=== PATIENT | female | born 1960 | race African-American/Black ===

== ENCOUNTER 2016-10-02 14:29 | Emergency (ER) | payer MEDICARE ==
[2016-10-02 14:38] VITALS: BP 177/103; PULSE 94; TEMP 97.6; BMI 22.6
[2016-10-02] MEDS ORDERED: KETOROLAC TROMETHAMINE 60 MG/2 ML VIAL IM ONE (15:10)
--- NOTE | 2016-10-02 15:16 | PDOC ---
History of Present Illness - General Chief Complaint: RX Refill Stated Complaint: LOWER BACK PAIN Time Seen by Provider: 10/02/16 14:57 History Source: Patient Exam Limitations: No Limitations - History of Present Illness Initial Comments: 10/02/16 15:11 55 yr female with history of low back pain. Pt states she has had low back pain many years ago but more recently started again. Pt had MRI 09/23/16 which showed multiple herniated discs L5, L4 no spinal cord compression. Pt states her PMD gave her percocet and she ran out. Pt also asking for name of neurosurgeon. Pt denies any urine or bowel dysfunction , no saddle anesthesia or leg weakness, no abd pain. Pt ambulatory with cane. 10/02/16 18:46 Past History - Past Medical History Allergies/Adverse Reactions: Allergies Allergy/AdvReac Type Severity Reaction Status Date / Time ciprofloxacin HCl Allergy Severe Swelling Verified 10/02/16 14:38 [From Cipro] zinc [Zinc] Allergy Mild Rash Verified 10/02/16 14:38 Home Medications: Ambulatory Orders Lisinopril [Prinivil] 5 mg PO DAILY 10/13/15 Atorvastatin Ca [Lipitor] 10 mg PO HS 07/01/16 Metoprolol Tartrate [Lopressor -] 12.5 mg PO DAILY 07/01/16 Aspirin [ASA -] 325 mg PO DAILY #0 tablet 07/02/16 Nicotine Polacrilex [Nicotine Gum] 2 mg BC BID PRN #60 gum 07/02/16 Acetaminophen/Caffeine/Butalb [Fioricet -] 1 tablet PO Q6H PRN #20 tablet MDD 4 tabs 07/03/16 Oxycodone HCl/Acetaminophen [Percocet 5-325 mg Tablet] 1 - 2 tab PO Q6H PRN #15 tab MDD 8 10/02/16 Asthma: Yes Cardiac Disorders: Yes (CAD s/p cath ) CVA: No COPD: No CHF: No DVT: No Dementia: No Diabetes: No Dialysis: No GI Disorders: No Disorders: No HTN: Yes Hypercholesterolemia: Yes Suicide Attempt (Hx): No - Surgical History Appendectomy: Yes Cardiac Surgery: Yes (Cardiac cath) - Family Disease History Comment:: 10/02/16 15:14 none relevant - Immunization History Immunization Up to Date: Yes - Psycho/Social/Smoking Cessation Hx Anxiety: No Suicidal Ideation: No Smoking Status: Yes Smoking History: Current every day smoker Years of Tobacco Use: 30 Have you smoked in the past 12 months: Yes Number of Cigarettes Smoked Daily: 10 Cigars Per Day: 0 Information on smoking cessation initiated: No 'Breaking Loose' booklet given: 11/13/15 Hx Alcohol Use: No Drug/Substance Use Hx: No Substance Use Type: None Review of Systems - Review of Systems Able to Perform ROS?: Yes Is the patient limited Armenian proficient: No Constitutional: No: Symptoms Reported HEENTM: No: Symptoms Reported Respiratory: No: Symptoms reported Cardiac (ROS): No: Symptoms Reported ABD/GI: No: Symptoms Reported : No: Symptoms Reported Musculoskeletal: Yes: See HPI, Back Pain Integumentary: No: Symptoms Reported Neurological: No: Symptoms reported *Physical Exam - Vital Signs Last Vital Signs Temp Pulse Resp BP Pulse Ox 97.6 F 94 H 20 177/103 100 10/02/16 14:34 10/02/16 14:34 10/02/16 14:34 10/02/16 14:34 10/02/16 14:34 - Physical Exam General Appearance: Yes: Nourished, Appropriately Dressed, Thin HEENT: positive: EOMI, VAUGHN Neck: positive: Supple, Tender lateral (right side with movement). negative: Tender Respiratory/Chest: positive: Lungs Clear, Normal Breath Sounds Cardiovascular: positive: Regular Rhythm, Regular Rate Gastrointestinal/Abdominal: positive: Normal Bowel Sounds, Flat, Soft. negative : Tender Musculoskeletal: positive: Normal Inspection, Vertebral Tenderness (lumbar , praspinal left side ). negative: CVA Tenderness, CVA Tenderness (R), CVA Tenderness (L), Decreased Range of Motion, Muscle Spasm Extremity: positive: Normal Capillary Refill, Normal Inspection, Normal Range of Motion Integumentary: positive: Normal Color, Dry, Warm Neurologic: positive: Fully Oriented, Alert, Normal Mood/Affect, Normal Response , Motor Strength 01/21 Medical Decision Making - Medical Decision Making 10/02/16 15:17 cc: acute on chronic low back pain pt has shown me the MRI report which was done on 09/23/16 shows herniations L3,4,5 pt denies saddle anesthesia, no abd pain , no groin pain, no urine or bowel dysfunction will give toradol and percocet RX, follow up as discussed pt agrees with plan all questions asked and answered before discharge. 10/02/16 18:46 *DC/Admit/Observation/Transfer Diagnosis at time of Disposition: Low back pain Qualifiers: Chronicity: chronic Back pain laterality: left Sciatica presence: without sciatica Qualified Code(s): M54.5 - Low back pain - Discharge Dispostion Disposition: HOME Condition at time of disposition: Good - Prescriptions Prescriptions: Oxycodone HCl/Acetaminophen [Percocet 5-325 mg Tablet] 1 - 2 tab PO Q6H PRN #15 tab MDD 8 PRN Reason: Severe Pain - Referrals Referrals: Rodney Frank [Primary Care Provider] - Rick Murillo MD [Staff Physician] - - Patient Instructions Additional Instructions: take the medication as directed for pain DO NOT DRIVE OR DRINK ALCOHOL OR OPERATE HEAVY MACHINERY IF TAKING PERCOCET APPLY ICE EVERY 2HRS FOR 20 MINUTES TO LOWER BACK FOR 2 DAYS WHILE AWAKE take naprosyn 500mg every 12hrs for pain follow with the neurosurgeon Dr. Murillo for follow up
== END 2016-10-02 15:42 | disposition home or self-care (01) ==
LOC: JERFT 14:29
PROC: 3E0233Z Introduction of Anti-inflammatory into Muscle, Percutaneous Approach (ICD-10-PCS; principal; 2016-10-02)
DX: M54.5 Low back pain (principal); I10 Essential (primary) hypertension; E78.00 Pure hypercholesterolemia, unspecified; Z98.61 Coronary angioplasty status; F17.210 Nicotine dependence, cigarettes, uncomplicated
CPT/HCPCS: 96372; 99281-25

== ENCOUNTER 2016-10-16 13:16 | Inpatient (IN) | payer MEDICARE, OTHER ==
[2016-10-16 13:27] VITALS: BMI 23.3
--- NOTE | 2016-10-16 13:47 | PDOC ---
History of Present Illness - General Chief Complaint: Pain Stated Complaint: FEVER Time Seen by Provider: 10/16/16 13:41 History Source: Patient, Old Records Exam Limitations: No Limitations - History of Present Illness Initial Comments: 10/16/16 13:55 The patient is a 55-year-old female with history of hypertension, coronary artery disease, hyperlipidemia, and migraine headaches who presents the emergency department with three-day history of progressive onset diffuse headache with nausea and vomiting and right-sided abdominal pain. The patient took Uristat and Excedrin migraine for the headache without significant relief. The patient is on able to qualify her abdominal pain except to say that it is a strong pain that is exacerbated when she takes in a deep breath. She denies URI symptoms, diarrhea. The patient says that she has vomited up what ever she eats ; however, she has been able to tolerate pedro ranulfo without nausea or vomiting. She denies fevers and chills at home. The patient has had a recent MRI of the brain that was negative for mass lesion or stroke. Past History - Past Medical History Allergies/Adverse Reactions: Allergies Allergy/AdvReac Type Severity Reaction Status Date / Time ciprofloxacin HCl Allergy Severe Swelling Verified 10/16/16 13:26 [From Cipro] zinc [Zinc] Allergy Mild Rash Verified 10/16/16 13:26 Home Medications: Ambulatory Orders Lisinopril [Prinivil] 5 mg PO DAILY 10/13/15 Atorvastatin Ca [Lipitor] 10 mg PO HS 07/01/16 Metoprolol Tartrate [Lopressor -] 12.5 mg PO DAILY 07/01/16 Aspirin [ASA -] 325 mg PO DAILY #0 tablet 07/02/16 Nicotine Polacrilex [Nicotine Gum] 2 mg BC BID PRN #60 gum 07/02/16 Acetaminophen/Caffeine/Butalb [Fioricet -] 1 tablet PO Q6H PRN #20 tablet MDD 4 tabs 07/03/16 Oxycodone HCl/Acetaminophen [Percocet 5-325 mg Tablet] 1 - 2 tab PO Q6H PRN #15 tab MDD 8 10/02/16 Asthma: Yes Cardiac Disorders: Yes (CAD s/p cath ) CVA: No COPD: No CHF: No DVT: No Dementia: No Diabetes: No Dialysis: No GI Disorders: No Disorders: No HTN: Yes Hypercholesterolemia: Yes Suicide Attempt (Hx): No - Surgical History Appendectomy: Yes Cardiac Surgery: Yes (Cardiac cath) - Immunization History Immunization Up to Date: Yes - Psycho/Social/Smoking Cessation Hx Anxiety: No Suicidal Ideation: No Smoking Status: Yes Smoking History: Never smoked Years of Tobacco Use: 30 Have you smoked in the past 12 months: Yes Number of Cigarettes Smoked Daily: 10 Cigars Per Day: 0 'Breaking Loose' booklet given: 11/13/15 Hx Alcohol Use: No Drug/Substance Use Hx: No Substance Use Type: None Review of Systems - Review of Systems Able to Perform ROS?: Yes Is the patient limited Sudanese proficient: No Constitutional: No: Symptoms Reported HEENTM: No: Symptoms Reported Respiratory: No: Symptoms reported Cardiac (ROS): No: Symptoms Reported ABD/GI: Yes: See HPI : No: Symptoms Reported Musculoskeletal: No: Symptoms Reported Integumentary: No: Symptoms Reported Neurological: Yes: See HPI, Headache Hematologic/Lymphatic: No: Symptoms Reported *Physical Exam - Vital Signs Last Vital Signs Temp Pulse Resp BP Pulse Ox 98.0 F 134 H 20 117/63 97 10/16/16 13:23 10/16/16 13:23 10/16/16 13:23 10/16/16 13:23 10/16/16 13:23 - Physical Exam Comments: 10/16/16 13:58 GENERAL: Well developed, well nourished. Awake and alert. No acute distress. HEENT: Normocephalic, atraumatic. PERRLA, EOMI. No conjunctival pallor. Sclera are non- icteric. Moist mucous membranes. Oropharynx is clear. NECK: Supple. Full ROM. No JVD. No lymphadenopathy. CARDIOVASCULAR: Tachycardic and regular. No murmurs, rubs, or gallops. Distal pulses are 2+ and symmetric. PULMONARY: No evidence of respiratory distress. Lungs clear to auscultation bilaterally. No wheezing, rales or rhonchi. ABDOMINAL: Soft. There is tenderness on palpation in the right flank region. Non- distended. No rebound or guarding. No organomegaly. Normoactive bowel sounds. There is questionable CVA tenderness on the right. MUSCULOSKELETAL Normal range of motion at all joints. No bony deformities or tenderness. EXTREMITIES: No cyanosis. No clubbing. No edema. No calf tenderness. SKIN: Warm and dry. Normal capillary refill. No rashes. No jaundice. NEUROLOGICAL: Alert, awake, appropriate. Cranial nerves 2-12 intact. Grossly non-focal exam. PSYCHIATRIC: Cooperative. Good eye contact. Appropriate mood and affect. ED Treatment Course - LABORATORY CBC & Chemistry Diagram: 10/16/16 14:20 10/16/16 14:20 Medical Decision Making - Medical Decision Making 10/16/16 13:59 55-year-old female with history of hypertension, coronary artery disease, hyperlipidemia and migraine headaches who presents the emergency Department with complaints of 3 day history of headache and vomiting as well as right- sided abdominal pain; she is markedly tachycardic. Differential diagnosis includes but is not limited to: Nephrolithiasis, gallbladder disease, pyelonephritis, appendicitis, migraine headache, dehydration, electrolyte abnormality, toxic/metabolic derangement. Plan: 1. EKG 2. Labs 3. Urine 4. IV fluids for hydration 5. Antiemetics 6. Pain management 7. CT scan of the abdomen and pelvis 8. Observe and reevaluate *DC/Admit/Observation/Transfer Diagnosis at time of Disposition: Headache, Right sided abdominal pain, Pyelonephritis - Discharge Dispostion Condition at time of disposition: Stable Admit: Yes - Referrals Referrals: Rodney Frank [Primary Care Provider] -
[2016-10-16] MEDS ORDERED: METOCLOPRAMIDE HCL INJECTION 10 MG/2 ML VIAL IVPB ONE (13:49)
[2016-10-16] MEDS ORDERED: SODIUM CHLORIDE 1,000 ML IV STA (13:49)
[2016-10-16] MEDS ORDERED: KETOROLAC TROMETHAMINE 30 MG/1 ML VIAL IVPUSH ONE (13:53)
[2016-10-16 14:37] LABS: MCH 31.7 pg (25.7-33.7); MEAN CELL VOLUME 93.4 fl (80-96); MEAN PLT VOLUME 8.9 fl (7.5-11.1); PLATELET COUNT 160 K/MM3 (134-434); RDW 15.1 % (11.6-15.6); WHITE BLOOD COUNT 22.9 K/mm3 (4.0-10.0)
[2016-10-16 14:39] LABS: URINE APPEARANCE CLOUDY; URINE BILIRUBIN NEGATIVE (NEGATIVE); URINE COLOR YELLOW; URINE GLUCOSE (UA) NEGATIVE (NEGATIVE); URINE KETONE NEGATIVE (NEGATIVE); URINE NITRITE POSITIVE (NEGATIVE); URINE UROBILINOGEN NEGATIVE E.U./dl (0.2-1.0)
[2016-10-16 14:53] LABS: URINE BLOOD 3+ (NEGATIVE); URINE LEUK ESTERASE 3+ (NEGATIVE); URINE PROTEIN 2+ (NEGATIVE)
[2016-10-16 14:54] LABS: URINE BACTERIA MANY /hpf (NONE SEEN); URINE MUCUS RARE; URINE RBC 11 /hpf (0-3); URINE WBC 496 /hpf (3-5)
[2016-10-16] MEDS ORDERED: PIPERACILLIN/TAZOB 3.375 GM/50 ML PRE-DOCKED IV ONE (14:59)
[2016-10-16] MEDS ORDERED: VANCOMYCIN 1,000 MG in DEXTROSE 5%-WATER - 250 ML IVPB ONE (14:59)
[2016-10-16] MEDS ORDERED: ACETAMINOPHEN 500 MG TABLET (FP) PO ONE (15:13)
[2016-10-16 15:16] LABS: ALBUMIN 3.2 g/dl (3.4-5.0); ANION GAP 14 (8-16); BILIRUBIN,TOTAL 0.6 mg/dL (0.2-1.0); CALCIUM 8.8 mg/dL (8.5-10.1); CO2 24 mmol/L (21-32); CREATININE 1.3 mg/dL (0.55-1.02); GLUCOSE,RANDOM 103 mg/dL (74-106); SGPT/ALT 22 U/L (12-78); TOT PROT 7.3 g/dl (6.4-8.2)
[2016-10-16 15:19] LABS: ALK PHOS 90 U/L (45-117); TROPONIN I < 0.02 ng/ml (0.00-0.05)
[2016-10-16 15:32] LABS: PLATELET ESTIMATE ADEQUATE (NORMAL)
[2016-10-16 15:46] LABS: SGOT/AST 22 U/L (15-37)
[2016-10-16] MEDS ORDERED: CEFTRIAXONE 2 MG in DEXTROSE 5%-WATER - 50 ML IVPB ONE (16:26)
--- NOTE | 2016-10-16 17:04 | HP ---
CHIEF COMPLAINT: fever, chills, vomiting PCP: HISTORY OF PRESENT ILLNESS: 55 yr old woman with history of AL(4 yrs ago), HTN, CAD, presents with subjective fevers, chills, vomiting for 3 days a/w headache and abdominal pain. She has not been feeling well since . Has had poor po intake during this time. 4 episodes of vomiting, last episode this morning, nonbloody, watery. Denies chest pain, SOB, cough, night sweats, dysuria, hematuria, pyuria, hematochezia, hx of UTI, nephrolithiasis. Sexually active, no contraception/barrier, last encounter tuesday. has not been tested for STD's in some time, no hx of STD's. ER course was notable for: (1) sepsis (wbc 22.9, HR 134, LUIS ANGEL Cr 1.3) (2) abd/pelvis CT w/o contrast with pyelonephritis (3) benadryl, vanc, zosyn, reglan Recent Travel: None PAST MEDICAL HISTORY: poor historian, some hx obtained from chart Cardiac cath 2015 HTN HLD Asthma PAST SURGICAL HISTORY: lymph nodes removed below ears because they were enlarged and would not go away , does not know the cause of enlargement Tonsillectomy as a child, 6th grade Appendix in her twenties Social History: Smoking: current 1/2 pack/day, since she was in her 20's Alcohol: never Drugs: never Family History: father of AL in his 60's, Mother passed due to perforated colon during colonoscopy. Allergies ciprofloxacin HCl [From Cipro] Allergy (Severe, Verified 10/16/16 13:26) Swelling zinc [Zinc] Allergy (Mild, Verified 10/16/16 13:26) Rash [facility] gabap[facility] 300mg 1tab bid 10/06/2016 tramadol 50mg one tab q8h, 14day supply - one time medication medrol pack 10/05/2016 no maintanence medications no antibiotics in 6 months. PER CHART: Medication Instructions Recorded Lisinopril [Prinivil] 10 mg PO DAILY 10/13/15 Atorvastatin Ca [Lipitor] 10 mg PO HS 07/01/16 Metoprolol Tartrate [Lopressor -] 25 mg PO DAILY 07/01/16 Aspirin [ASA -] 325 mg PO DAILY #0 tablet 07/02/16 Acetaminophen/Caffeine/Butalb 1 tablet PO Q6H PRN #20 tablet MDD 07/03/16 [Fioricet -] 4 tabs Oxycodone HCl/Acetaminophen 1 - 2 tab PO Q6H PRN #15 tab MDD 8 10/02/16 [Percocet 5-325 mg Tablet] REVIEW OF SYSTEMS CONSTITUTIONAL: Present: fever, chills,generalized weakness, loss of appetite, Absent: diaphoresis, , malaise, weight change HEENT: Absent: rhinorrhea, nasal congestion, throat pain, throat swelling, difficulty swallowing, mouth swelling, ear pain, eye pain, visual changes CARDIOVASCULAR: Absent: chest pain, syncope, palpitations, irregular heart rate, lightheadedness , peripheral edema RESPIRATORY: Absent: cough, shortness of breath, dyspnea with exertion, orthopnea, wheezing, stridor, hemoptysis GASTROINTESTINAL: Present: vomiting Absent: abdominal pain, abdominal distension, nausea, diarrhea, constipation, melena, hematochezia GENITOURINARY: Absent: dysuria, frequency, urgency, hesitancy, hematuria, flank pain, genital pain MUSCULOSKELETAL: Present: chronic lower back pain Absent: myalgia, arthralgia, joint swelling, neck pain SKIN: Absent: rash, itching, pallor HEMATOLOGIC/IMMUNOLOGIC: Absent: easy bleeding, easy bruising, lymphadenopathy, frequent infections ENDOCRINE: Absent: unexplained weight gain, unexplained weight loss, heat intolerance, cold intolerance NEUROLOGIC: Absent: headache, focal weakness or paresthesias, dizziness, unsteady gait, seizure, mental status changes, bladder or bowel incontinence PSYCHIATRIC: Absent: anxiety, depression, suicidal or homicidal ideation, hallucinations. PHYSICAL EXAMINATION Vital Signs - 24 hr 10/16/16 10/16/16 13:23 15:12 Temperature 98.0 F 100.4 F H Pulse Rate 134 H Respiratory 20 Rate Blood Pressure 117/63 O2 Sat by Pulse 97 Oximetry (%) GENERAL: tired appearing, fully oriented, in no acute distress. HEAD: Normal with no signs of trauma. EYES: Pupils equal, round and reactive to light, extraocular movements intact, sclera anicteric, conjunctiva clear. No lid lag. EARS, NOSE, THROAT: Ears normal, nares patent, oropharynx clear without exudates. Moist mucous membranes. well healed scar below ears. no erythema NECK: Normal range of motion, supple without lymphadenopathy. LUNGS: Breath sounds equal, clear to auscultation bilaterally. No wheezes, and no crackles. No accessory muscle use. HEART: Regular rate and rhythm, normal S1 and S2 without murmur, rub or gallop. ABDOMEN: Soft, diffuse mild tenderness, not distended, normoactive bowel sounds , no guarding, no rebound, no masses. MUSCULOSKELETAL: Normal range of motion at all joints. No bony deformities or tenderness. No CVA tenderness. UPPER EXTREMITIES: 2+ pulses, warm, well-perfused. No cyanosis. No clubbing. No peripheral edema. 4/5 strength. LOWER EXTREMITIES: 2+ pulses, warm, well-perfused. No calf tenderness. No peripheral edema. 3/5 strength b/l LE, pain with extension of b/l legs in lower back. NEUROLOGICAL: Cranial nerves II-XII intact. Normal speech. PSYCHIATRIC: Cooperative. Good eye contact. Appropriate mood and affect. SKIN: Warm- feels feverish, dry, normal turgor, no rashes or lesions noted. Laboratory Results - last 24 hr 10/16/16 10/16/16 10/16/16 14:20 14:20 14:20 WBC 22.9 H D RBC 4.32 Hgb 13.7 Hct 40.3 MCV 93.4 MCHC 34.0 RDW 15.1 Plt Count 160 D MPV 8.9 Neutrophils % 85.0 H D Lymphocytes % 4.0 L D Monocytes % 9.0 Eosinophils % 0.0 D Basophils % 0.0 Band Neutrophils 2.0 Differential Comment Manual diff done Platelet Estimate Adequate Sodium 141 Potassium 4.2 Chloride 103 Carbon Dioxide 24 Anion Gap 14 BUN 14 Creatinine 1.3 H D Creat Clearance w eGFR 42.68 Random Glucose 103 D Lactic Acid Calcium 8.8 Total Bilirubin 0.6 D AST 22 D ALT 22 D Alkaline Phosphatase 90 Creatine Kinase 54 Troponin I < 0.02 Total Protein 7.3 Albumin 3.2 L Lipase Urine Color Yellow Urine Appearance Cloudy Urine pH 6.0 Ur Specific [place] 1.016 Urine Protein 2+ H Urine Glucose (UA) Negative Urine Ketones Negative Urine Blood 3+ H Urine Nitrite Positive Urine Bilirubin Negative Urine Urobilinogen Negative Ur Leukocyte Esterase 3+ H Urine RBC 11 Urine WBC 496 Ur Epithelial Cells Rare Urine Bacteria Many Urine Mucus Rare 10/16/16 10/16/16 14:20 14:59 WBC RBC Hgb Hct MCV MCHC RDW Plt Count MPV Neutrophils % Lymphocytes % Monocytes % Eosinophils % Basophils % Band Neutrophils Differential Comment Platelet Estimate Sodium Potassium Chloride Carbon Dioxide Anion Gap BUN Creatinine Creat Clearance w eGFR Random Glucose Lactic Acid 1.962 Calcium Total Bilirubin AST ALT Alkaline Phosphatase Creatine Kinase Troponin I Total Protein Albumin Lipase 39 L Urine Color Urine Appearance Urine pH Ur Specific [place] Urine Protein Urine Glucose (UA) Urine Ketones Urine Blood Urine Nitrite Urine Bilirubin Urine Urobilinogen Ur Leukocyte Esterase Urine RBC Urine WBC Ur Epithelial Cells Urine Bacteria Urine Mucus ASSESSMENT/PLAN: 55 yr woman with HTN, CAD, hx of AL, HLD presents with abdominal pain and fever for 3 days. #Pylonephritis with sepsis(leucocytosis, LUIS ANGEL, tachycardia) - dose of Vanc and zosyn given in ED - rocephin 2gm daily -- start 10/16 - awaiting urine cultures, though cultures sent after abx, empirically will treat for e.coli. - repeat BMP and CBC in the AM #LUIS ANGEL (cr 1.3, elevated from baseline 0.5) - will repeat in the AM, likely from poor intake vs acute inflammation from pyelonephritis - CT findings significant for perirenal fat stranding, pyelonephritis vs renal vein thrombosis -- Ultrasound to evaluate - hold asa and lisinopril until LUIS ANGEL resolves, avoid nephrotoxic medications #HTN - metoprolol 25mg po bid #CAD - Lipitor 20mg HS DVT; heparin TID, avoid lovenox given LUIS ANGEL Diet: low sodium Visit type - Emergency Visit Emergency Visit: Yes ED Registration Date: 10/16/16 Care time: The patient presented to the Emergency Department on the above date and was hospitalized for further evaluation of their emergent condition. - New Patient This patient is new to me today: Yes Date on this admission: 10/16/16 - Critical Care Critical Care patient: No
[2016-10-16] MEDS ORDERED: CEFTRIAXONE 100 ML IVPB ONE (17:40)
[2016-10-16] MEDS ORDERED: KETOROLAC TROMETHAMINE 15 MG/ML VIAL IVPUSH PRN (18:11)
--- NOTE | 2016-10-16 18:23 | PN ---
Teaching Attending Note Name of Resident: Ellie Paz ATTENDING PHYSICIAN STATEMENT I saw and evaluated the patient. I reviewed the resident's note and discussed the case with the resident. I agree with the resident's findings and plan as documented. SUBJECTIVE: CC: fever , chills, RLQ abd pain. sx started 3 days ago, denies sore throat, cough , CP or SOB. has no dysuria or frequency . denies back pain . no recent travel. no h/o recurrent UTIs. s/p menopause she reports n/V ( non bloody vomitus ) OBJECTIVE: NAD , AAOx3 HEENT: Dry MM , no facial droop. CV: RRR, no MRG Lungs : CTAB Ext : no edema , no erythema. Abd : soft, ND , NL BS , TTP in RLQ , no rebound tenderness or guarding. discomfort in R CVA . ASSESSMENT AND PLAN: 55 y/o lady with h/o HTN , who presented with fever , chills , N/V she was found to have sepsis due to complicated UTI / R pyelonephritis. 1- Acute complicated UTI /R pyelonephritis with sepsis . unfortunately the patient was given Abx before urine cx was sent . she is hemodynamically stable - give ceftriaxone 2g daily - follow blood cx - follow urine cx , might not grow anything - will check abd doppler, to evaluate finding on CT scan - toradol fro pain . - monitor cbc , BMP 2- HTN : - hold lisinopril - resume lopressor with holding parameters 3- DVT px : sq heparin
[2016-10-16] MEDS: cefTRIAXone 2 GM/100 ML BAG (PRE-DOCKED) IVPB SCH (19:38)
[2016-10-16] MEDS ORDERED: ACETAMINOPHEN 325 MG TABLET (FP) PO ONE (21:12)
[2016-10-16] MEDS ORDERED: SODIUM CHLORIDE 1,000 ML IV SCH (21:30)
[2016-10-16] MEDS: METOPROLOL TARTRATE 25 MG TABLET (FP) PO SCH (21:39)
[2016-10-16] MEDS: ATORVASTATIN CA 20 MG TABLET (FP) PO SCH (21:39)
[2016-10-16] MEDS: HEPARIN NA (PORCINE) 5,000 UNITS/ML 1ML VIAL SQ SCH (21:45)
[2016-10-16] MEDS ORDERED: HEPARIN NA (PORCINE) 5,000 UNITS/ML 1ML VIAL SQ SCH (22:00)
[2016-10-17] MEDS ORDERED: IBUPROFEN 400 MG TABLET (FP) PO ONE ×2 (02:30→22:55)
[2016-10-17] MEDS: HEPARIN NA (PORCINE) 5,000 UNITS/ML 1ML VIAL SQ SCH ×3 (06:10→22:18)
[2016-10-17 07:16] LABS: BASOPHIL 0.3 % (0-2.0); MCH 31.8 pg (25.7-33.7); MEAN CELL VOLUME 93.5 fl (80-96); MEAN PLT VOLUME 8.8 fl (7.5-11.1); NEUTROPHILS 86.3 % (42.8-82.8); PLATELET COUNT 119 K/MM3 (134-434); RDW 14.5 % (11.6-15.6)
[2016-10-17 08:00] LABS: CALCIUM 8.2 mg/dL (8.5-10.1)
--- NOTE | 2016-10-17 09:33 | EKG ---
Test Reason : Blood Pressure : / mmHG Vent. Rate : 096 BPM Atrial Rate : 096 BPM P-R Int : 120 ms QRS Dur : 082 ms QT Int : 330 ms P-R-T Axes : 058 024 042 degrees QTc Int : 416 ms NORMAL SINUS RHYTHM POSSIBLE LEFT ATRIAL ENLARGEMENT WHEN COMPARED WITH ECG OF 02-JUL-2016 09:03, VENT. RATE HAS INCREASED BY 34 BPM Confirmed by EZ MENA MD ([id number]) on 10/17/2016 9:33:45 AM Referred By: Confirmed By:EZ MENA MD
[2016-10-17] MEDS: SODIUM CHLORIDE 1,000 ML IV SCH (10:02)
[2016-10-17] MEDS: ASPIRIN COATED 81 MG TABLET.EC PO SCH (10:03)
[2016-10-17] MEDS: METOPROLOL TARTRATE 25 MG TABLET (FP) PO SCH ×2 (10:03→22:18)
[2016-10-17] MEDS ORDERED: POTASSIUM CHLORIDE TABS 20 MEQ TABLET.ER (FP) PO ONE ×2 (12:30→15:30)
--- NOTE | 2016-10-17 12:30 | PN ---
Progress Note (short form) - Note Progress Note: Subjective: She feels better today . Denies SOB or CP. Abd pain has improved . had fever last night . Objective: Vital Signs: Last Vital Signs Temp Pulse Resp BP Pulse Ox 98.8 F 87 20 110/72 97 10/17/16 05:57 10/17/16 05:57 10/17/16 05:57 10/17/16 05:57 10/16/16 21:00 Physical Exam: NAD , AAOx3 HEENT: Dry MM , no facial droop. CV: RRR, no MRG Lungs : CTAB Ext : no edema, no erythema. Abd : soft, ND , NL BS , TTP in RLQ , no rebound tenderness or guarding. discomfort in R CVA. Laboratory Results - last 24 hr 10/16/16 10/16/16 10/16/16 14:20 14:20 14:20 WBC 22.9 H D RBC 4.32 Hgb 13.7 Hct 40.3 MCV 93.4 MCHC 34.0 RDW 15.1 Plt Count 160 D MPV 8.9 Neutrophils % 85.0 H D Lymphocytes % 4.0 L D Monocytes % 9.0 Eosinophils % 0.0 D Basophils % 0.0 Band Neutrophils 2.0 Differential Comment Manual diff done Platelet Estimate Adequate Sodium 141 Potassium 4.2 Chloride 103 Carbon Dioxide 24 Anion Gap 14 BUN 14 Creatinine 1.3 H D Creat Clearance w eGFR 42.68 Random Glucose 103 D Lactic Acid Calcium 8.8 Total Bilirubin 0.6 D AST 22 D ALT 22 D Alkaline Phosphatase 90 Creatine Kinase 54 Troponin I < 0.02 Total Protein 7.3 Albumin 3.2 L Lipase Urine Color Yellow Urine Appearance Cloudy Urine pH 6.0 Ur Specific [place] 1.016 Urine Protein 2+ H Urine Glucose (UA) Negative Urine Ketones Negative Urine Blood 3+ H Urine Nitrite Positive Urine Bilirubin Negative Urine Urobilinogen Negative Ur Leukocyte Esterase 3+ H Urine RBC 11 Urine WBC 496 Ur Epithelial Cells Rare Urine Bacteria Many Urine Mucus Rare 10/16/16 10/16/16 10/17/16 14:20 14:59 06:00 WBC 17.0 H RBC 3.69 Hgb 11.7 D Hct 34.5 MCV 93.5 MCHC 34.0 RDW 14.5 Plt Count 119 L D MPV 8.8 Neutrophils % 86.3 H Lymphocytes % 5.3 L D Monocytes % 8.1 Eosinophils % 0.0 Basophils % 0.3 D Band Neutrophils Differential Comment Platelet Estimate Sodium Potassium Chloride Carbon Dioxide Anion Gap BUN Creatinine Creat Clearance w eGFR Random Glucose Lactic Acid 1.962 Calcium Total Bilirubin AST ALT Alkaline Phosphatase Creatine Kinase Troponin I Total Protein Albumin Lipase 39 L Urine Color Urine Appearance Urine pH Ur Specific [place] Urine Protein Urine Glucose (UA) Urine Ketones Urine Blood Urine Nitrite Urine Bilirubin Urine Urobilinogen Ur Leukocyte Esterase Urine RBC Urine WBC Ur Epithelial Cells Urine Bacteria Urine Mucus 10/17/16 06:00 WBC RBC Hgb Hct MCV MCHC RDW Plt Count MPV Neutrophils % Lymphocytes % Monocytes % Eosinophils % Basophils % Band Neutrophils Differential Comment Platelet Estimate Sodium 141 Potassium 3.3 L D Chloride 107 Carbon Dioxide 23 Anion Gap 11 BUN 16 Creatinine 1.0 D Creat Clearance w eGFR Random Glucose 86 Lactic Acid Calcium 8.2 L Total Bilirubin AST ALT Alkaline Phosphatase Creatine Kinase Troponin I Total Protein Albumin Lipase Urine Color Urine Appearance Urine pH Ur Specific [place] Urine Protein Urine Glucose (UA) Urine Ketones Urine Blood Urine Nitrite Urine Bilirubin Urine Urobilinogen Ur Leukocyte Esterase Urine RBC Urine WBC Ur Epithelial Cells Urine Bacteria Urine Mucus ASSESSMENT AND PLAN: 55 y/o lady with h/o HTN , who presented with fever , chills , N/V she was found to have sepsis due to complicated UTI / R pyelonephritis. 1- Acute complicated UTI with R pyelonephritis with sepsis . - Cont ceftriaxone day 2 - follow blood cx - follow urine cx , might not grow due to ABx being given before cx was sent. - Abd doppler, to evaluate finding on CT scan - monitor cbc , BMP 2- HTN : - cont to hold lisinopril - cont Lopressor 3- DVT px : sq heparin Visit type - Emergency Visit Emergency Visit: Yes ED Registration Date: 10/16/16 Care time: The patient presented to the Emergency Department on the above date and was hospitalized for further evaluation of their emergent condition. - New Patient This patient is new to me today: No - Critical Care Critical Care patient: No
[2016-10-17] MEDS ORDERED: CEFTRIAXONE 2 GM in DEXTROSE 5%-WATER - 100 ML IVPB SCH (16:00)
[2016-10-17] MEDS: ACETAMINOPHEN/CAFFEINE/BUTALBITAL 1 TAB PO PRN (17:21)
[2016-10-17] MEDS: cefTRIAXone 2 GM/100 ML BAG (PRE-DOCKED) IVPB SCH (17:21)
[2016-10-17] MEDS: ATORVASTATIN CA 20 MG TABLET (FP) PO SCH (22:17)
[2016-10-18] MEDS: SODIUM CHLORIDE 1,000 ML IV SCH ×2 (05:24→10:04)
[2016-10-18] MEDS: ACETAMINOPHEN/CAFFEINE/BUTALBITAL 1 TAB PO PRN ×2 (06:28→15:12)
[2016-10-18] MEDS: HEPARIN NA (PORCINE) 5,000 UNITS/ML 1ML VIAL SQ SCH ×4 (06:29→21:50)
[2016-10-18 07:18] LABS: BASOPHIL 0.4 % (0-2.0); EOSINOPHIL 0.9 % (0-4.5); MCH 31.7 pg (25.7-33.7); MCHC 33.7 g/dl (32.0-36.0); MEAN CELL VOLUME 93.9 fl (80-96); MEAN PLT VOLUME 8.9 fl (7.5-11.1); NEUTROPHILS 76.3 % (42.8-82.8); PLATELET COUNT 124 K/MM3 (134-434); RDW 14.7 % (11.6-15.6); WHITE BLOOD COUNT 10.2 K/mm3 (4.0-10.0)
[2016-10-18 07:52] LABS: CALCIUM 7.5 mg/dL (8.5-10.1); CREATININE 0.7 mg/dL (0.55-1.02)
--- NOTE | 2016-10-18 08:42 | PN ---
Physical Exam: SUBJECTIVE: Patient seen and examined few chills. denies chest pain, fever, cough, back pain, dysuria, hematuria, sob eating/ambulating/toileting without difficulty. OBJECTIVE: Vital Signs Period Temp Pulse Resp BP Sys/Avila Pulse Ox Last 24 Hr 97.9 F-100.8 F 72-91 20-20 106-131/62-70 100-100 GENERAL: The patient is awake, alert, and fully oriented, in no acute distress. ENT: moist mucous membranes. LUNGS: Breath sounds equal, clear to auscultation bilaterally HEART: Regular rate and rhythm, S1, S2 ABDOMEN: Soft, nontender, nondistended, normoactive bowel sounds, mild ttp in right lateral EXTREMITIES: 2+ pulses, warm, well-perfused, no edema. NEUROLOGICAL: Normal speech PSYCH: Normal mood, normal affect. SKIN: Warm, dry, normal turgor, no rashes or lesions noted Laboratory Results - last 24 hr 10/18/16 10/18/16 05:52 05:52 WBC 10.2 H D RBC 3.37 L Hgb 10.7 Hct 31.6 L MCV 93.9 MCHC 33.7 RDW 14.7 Plt Count 124 L MPV 8.9 Neutrophils % 76.3 Lymphocytes % 11.4 D Monocytes % 11.0 H Eosinophils % 0.9 D Basophils % 0.4 Sodium 141 Potassium 3.5 Chloride 110 H Carbon Dioxide 22 Anion Gap 9 BUN 9 D Creatinine 0.7 D Random Glucose 110 H D Calcium 7.5 L Active Medications Generic Name Dose Route Start Last Admin Trade Name Freq PRN Reason Stop Dose Admin Acetaminophen/Butalbital/Caffeine 1 tablet 10/16/16 18:37 10/18/16 06:28 Fioricet - PO 1 tablet Q6H PRN Administration HEADACHE Aspirin 81 mg 10/17/16 10:00 10/17/16 10:03 Ecotrin - PO 81 mg DAILY KENNETH Administration Atorvastatin Calcium 20 mg 10/16/16 22:00 10/17/16 22:17 Lipitor - PO 20 mg HS KENNETH Administration Ceftriaxone Sodium 2 gm 10/16/16 18:00 10/17/16 17:21 Rocephin 2gm Ivpb (Pre-Docked) IVPB 2 gm Q24H KENNETH Administration Heparin Sodium (Porcine) 5,000 unit 10/16/16 22:00 10/18/16 06:29 Heparin - SQ Not Given TID KENNETH Sodium Chloride 1,000 mls @ 100 mls/hr 10/17/16 07:51 10/18/16 05:24 Normal Saline - IV 100 mls/hr ASDIR KENNETH Administration Metoprolol Tartrate 25 mg 10/16/16 22:00 10/17/16 22:18 Lopressor - PO 25 mg BID KENNETH Administration ASSESSMENT/PLAN: 55 yr woman with HTN, CAD, hx of [place], HLD presents with abdominal pain and fever for 3 days. - fever of 100.8 overnight. #Pylonephritis with sepsis(leucocytosis, LUIS ANGEL, tachycardia) - improved, leucocytosis trending down - dose of Vanc and zosyn given in ED - rocephin 2gm daily -- start 10/16 - urine cx negative, bld cx NGTD #LUIS ANGEL (cr 1.3, elevated from baseline 0.5) - improved, Cr 0.7 today - restart ASA and lisinopril - CT findings significant for perirenal fat stranding, pyelonephritis vs renal vein thrombosis -- Ultrasound with patent renal veins, left kidney with cortical cysts. no hydronephrosis #HTN - metoprolol 25mg po bid #CAD - Lipitor 20mg HS DVT; heparin TID Diet: low sodium #Dispo - if afebrile for 24hr, d/c with levaquin 750mg po qd(enough to complete 5-day course) Visit type - Emergency Visit Emergency Visit: No - New Patient This patient is new to me today: No - Critical Care Critical Care patient: No - Discharge Referral Referred to [facility] Med [facility] No
[2016-10-18] MEDS: METOPROLOL TARTRATE 25 MG TABLET (FP) PO SCH ×2 (10:00→21:48)
[2016-10-18] MEDS: ASPIRIN COATED 81 MG TABLET.EC PO SCH (10:02)
--- NOTE | 2016-10-18 13:22 | PN ---
Teaching Attending Note Name of Resident: Ellie Paz ATTENDING PHYSICIAN STATEMENT I saw and evaluated the patient. I reviewed the resident's note and discussed the case with the resident. I agree with the resident's findings and plan as documented. SUBJECTIVE: No fever or chills, has RLQ pain , which is worse than yesterday's. no dysuria OBJECTIVE: NAD, AAOx3 HEENT: Dry MM , no facial droop. CV: RRR, no MRG Lungs: CTAB Ext : no edema, no erythema. Abd : soft, ND , NL BS , TTP in RLQ , no rebound tenderness or guarding. no CVA tenderness A/P : 55 y/o lady with h/o HTN , who presented with fever , chills , N/V she was found to have sepsis due to complicated UTI / R pyelonephritis. 1- Acute complicated UTI with R pyelonephritis with sepsis . improving . Had low grade fever last night - Cont ceftriaxone day 3 - follow blood cx ( NGTD) - Urine cx neg , but that will not change out management - Abd doppler, with no renal vein thrombosis - check LFTS 2- LUIS ANGEL : dc iVF . resolved 3- HTN : elevated - resume lisinopril - cont Lopressor 4- DVT px : sq heparin. dispo : possible dc tomorrow
[2016-10-18] MEDS ORDERED: KETOROLAC TROMETHAMINE 10 MG TABLET PO ONE (13:37)
[2016-10-18 13:51] LABS: ALBUMIN 2.3 g/dl (3.4-5.0); BILIRUBIN,DIRECT 0.1 mg/dL (0.0-0.2); BILIRUBIN,TOTAL 0.3 mg/dL (0.2-1.0); TOT PROT 5.7 g/dl (6.4-8.2)
[2016-10-18] MEDS: LISINOPRIL 10 MG TABLET (FP) PO SCH (16:40)
[2016-10-18] MEDS: cefTRIAXone 2 GM/100 ML BAG (PRE-DOCKED) IVPB SCH (18:09)
[2016-10-18] MEDS: ATORVASTATIN CA 20 MG TABLET (FP) PO SCH (21:48)
[2016-10-19] MEDS: ACETAMINOPHEN/CAFFEINE/BUTALBITAL 1 TAB PO PRN ×4 (00:51→21:35)
[2016-10-19] MEDS ORDERED: ACETAMINOPHEN 325 MG TABLET (FP) PO ONE (02:54)
[2016-10-19] MEDS: HEPARIN NA (PORCINE) 5,000 UNITS/ML 1ML VIAL SQ SCH ×3 (05:52→21:35)
--- NOTE | 2016-10-19 08:57 | PN ---
Physical Exam: SUBJECTIVE: Patient seen and examined. c/o of nasal congestion, productive cough of clear white sputum since last night , mild sore throat and rhinorrhea still has right lateral pain. denied chills, n/v, diarrhea, constipation OBJECTIVE: Vital Signs Period Temp Pulse Resp BP Sys/Avila Pulse Ox Last 24 Hr 98.0 F-102.1 F 20-93 18-18 135-162/84-98 99-100 GENERAL: The patient is awake, alert, and fully oriented, in no acute distress. ENT: moist mucous membranes., tenderness over left maxillary sinus, no PND, mild erythema in back of throat, no exduates, no LAD. LUNGS: Breath sounds equal, clear to auscultation bilaterally HEART: Regular rate and rhythm, S1, S2 ABDOMEN: Soft, nontender, nondistended, normoactive bowel sounds, ttp in right lateral side. neg mcburney's, psoas, obturator, rovsing's, gaurding. EXTREMITIES: 2+ pulses, warm, well-perfused, no edema. NEUROLOGICAL: Normal speech PSYCH: Normal mood, normal affect. SKIN: Warm, dry, normal turgor, no rashes or lesions noted Laboratory Results - last 24 hr 10/18/16 10/18/16 05:52 05:52 Total Bilirubin 0.3 D Cancelled Direct Bilirubin 0.1 Cancelled AST 30 D Cancelled ALT 29 D Cancelled Alkaline Phosphatase 66 D Cancelled Total Protein 5.7 L D Cancelled Albumin 2.3 L D Cancelled Active Medications Generic Name Dose Route Start Last Admin Trade Name Freq PRN Reason Stop Dose Admin Acetaminophen/Butalbital/Caffeine 1 tablet 10/16/16 18:37 10/19/16 07:13 Fioricet - PO 1 tablet Q6H PRN Administration HEADACHE Aspirin 81 mg 10/17/16 10:00 10/18/16 10:02 Ecotrin - PO 81 mg DAILY KENNETH Administration Atorvastatin Calcium 20 mg 10/16/16 22:00 10/18/16 21:48 Lipitor - PO 20 mg HS KENNETH Administration Ceftriaxone Sodium 2 gm 10/16/16 18:00 10/18/16 18:09 Rocephin 2gm Ivpb (Pre-Docked) IVPB 2 gm Q24H KENNETH Administration Heparin Sodium (Porcine) 5,000 unit 10/16/16 22:00 10/19/16 05:52 Heparin - SQ Not Given TID KENNETH Lisinopril 10 mg 10/18/16 16:15 10/18/16 16:40 Prinivil PO 10 mg DAILY KENNETH Administration Metoprolol Tartrate 25 mg 10/16/16 22:00 10/18/16 21:48 Lopressor - PO 25 mg BID KENNETH Administration ASSESSMENT/PLAN: 55 yr woman with HTN, CAD, hx of [place], HLD presents with abdominal pain and fever for 3 days. - fever of 102.1 overnight likely from viral URI, rapid flu swab pending. #Pylonephritis with sepsis(leucocytosis, LUIS ANGEL, tachycardia) - improved, leucocytosis trending down - dose of Vanc and zosyn given in ED - rocephin 2gm daily -- start 10/16 - urine cx negative, bld cx NGTD, ultrasound did not mention abscess formation around right kidney, fever likely from URI symptoms vs from pyelonephritis which is improving. #LUIS ANGEL (cr 1.3, elevated from baseline 0.5) - improved, Cr 0.7 today - restart ASA and lisinopril - CT findings significant for perirenal fat stranding, pyelonephritis vs renal vein thrombosis -- Ultrasound with patent renal veins, left kidney with cortical cysts. no hydronephrosis #HTN - metoprolol 25mg po bid #CAD - Lipitor 20mg HS DVT; heparin TID Diet: low sodium #Dispo - if afebrile for 24hr, d/c with levaquin 750mg po qd Visit type - Emergency Visit Emergency Visit: No - New Patient This patient is new to me today: No - Critical Care Critical Care patient: No - Discharge Referral Referred to [facility] Med P.C.: No
[2016-10-19 09:01] LABS: BASOPHIL 0.5 % (0-2.0); EOSINOPHIL 1.1 % (0-4.5); MCHC 34.5 g/dl (32.0-36.0); MEAN CELL VOLUME 92.6 fl (80-96); MEAN PLT VOLUME 8.6 fl (7.5-11.1); NEUTROPHILS 68.4 % (42.8-82.8); PLATELET COUNT 162 K/MM3 (134-434); WHITE BLOOD COUNT 7.4 K/mm3 (4.0-10.0)
[2016-10-19] MEDS: ASPIRIN COATED 81 MG TABLET.EC PO SCH (10:37)
[2016-10-19] MEDS: METOPROLOL TARTRATE 25 MG TABLET (FP) PO SCH ×2 (10:37→21:35)
[2016-10-19] MEDS: LISINOPRIL 10 MG TABLET (FP) PO SCH (10:37)
--- NOTE | 2016-10-19 17:51 | PN ---
Teaching Attending Note Name of Resident: Ellie Paz ATTENDING PHYSICIAN STATEMENT I saw and evaluated the patient. I reviewed the resident's note and discussed the case with the resident. I agree with the resident's findings and plan as documented. SUBJECTIVE: had fever last night , has nasal congestion and L facial pain .Abd pain still in R sided abd OBJECTIVE: NAD, AAOx3 HEENT: MMM, no facial droop. congested erythematous oropharynx , TTP over L maxillary sinus CV: RRR, no MRG Lungs: CTAB Ext : No edema, no erythema. Abd : soft, ND , NL BS , TTP in RLQ , no rebound tenderness or guarding. R CVA tenderness. Neg Mc Noel's , neg Psoas , Neg Obturator signs A/P : 55 y/o lady with h/o HTN , who presented with fever , chills , N/V she was found to have sepsis due to complicated UTI / R pyelonephritis. 1- Acute complicated UTI with R pyelonephritis with sepsis. had fever last night , but WBC is NL today. I believe her pyelonephritis is improving and the fever might be due to the URI /sinusitis she has ( developed here ) - Cont ceftriaxone day - follow blood cx ( NGTD) - repeat US of kidneys today with no abscess - Urine cx neg , but that will not change out management - Abd doppler, with no renal vein thrombosis - check rapid flu test - monitor cafefully for any further signs that might evolve - if cont to have fever , might broaden Abx ( ? zosyn ) 2- LUIS ANGEL :off IVF . resolved 3- HTN : - COnt LOpressor and lisinopril 4- DVT px : sq heparin. dispo : depends on clinical course . Possible dc tomorrow if no fever x 24 hr
[2016-10-19] MEDS: cefTRIAXone 2 GM/100 ML BAG (PRE-DOCKED) IVPB SCH (18:54)
[2016-10-19] MEDS: ATORVASTATIN CA 20 MG TABLET (FP) PO SCH (21:35)
[2016-10-20] MEDS ORDERED: ACETAMINOPHEN 325 MG TABLET (FP) PO PRN (03:30)
[2016-10-20] MEDS: HEPARIN NA (PORCINE) 5,000 UNITS/ML 1ML VIAL SQ SCH ×2 (05:06→14:54)
--- NOTE | 2016-10-20 09:09 | PN ---
Teaching Attending Note Name of Resident: Ellie Paz ATTENDING PHYSICIAN STATEMENT I saw and evaluated the patient. I reviewed the resident's note and discussed the case with the resident. I agree with the resident's findings and plan as documented. SUBJECTIVE: Patient is comfortable with no acute distress, no shortness of breath, no nausea or vomiting, no headache , no fever or chills. OBJECTIVE: Vital Signs Temperature 98.7 F 10/20/16 05:18 Pulse Rate 76 10/20/16 05:18 Respiratory Rate 18 10/20/16 05:18 Blood Pressure 135/78 10/20/16 05:18 O2 Sat by Pulse Oximetry (%) 100 10/19/16 21:00 CBCD WBC 7.4 K/mm3 (4.0-10.0) 10/19/16 08:20 RBC 3.62 M/mm3 (3.60-5.2) 10/19/16 08:20 Hgb 11.6 GM/dL (10.7-15.3) 10/19/16 08:20 Hct 33.5 % (32.4-45.2) 10/19/16 08:20 MCV 92.6 fl (80-96) 10/19/16 08:20 MCHC 34.5 g/dl (32.0-36.0) 10/19/16 08:20 RDW 15.0 % (11.6-15.6) 10/19/16 08:20 Plt Count 162 K/MM3 (134-434) D 10/19/16 08:20 MPV 8.6 fl (7.5-11.1) 10/19/16 08:20 CMP Sodium 141 mmol/L (136-145) 10/18/16 05:52 Potassium 3.5 mmol/L (3.5-5.1) 10/18/16 05:52 Chloride 110 mmol/L (98-107) H 10/18/16 05:52 Carbon Dioxide 22 mmol/L (21-32) 10/18/16 05:52 Anion Gap 9 (8-16) 10/18/16 05:52 BUN 9 mg/dL (7-18) D 10/18/16 05:52 Creatinine 0.7 mg/dL (0.55-1.02) D 10/18/16 05:52 Creat Clearance w eGFR 42.68 (>60) 10/16/16 14:20 Random Glucose 110 mg/dL (74-106) H D 10/18/16 05:52 Calcium 7.5 mg/dL (8.5-10.1) L 10/18/16 05:52 Total Bilirubin 0.3 mg/dL (0.2-1.0) D 10/18/16 05:52 AST 30 U/L (15-37) D 10/18/16 05:52 ALT 29 U/L (12-78) D 10/18/16 05:52 Alkaline Phosphatase 66 U/L (45-117) D 10/18/16 05:52 Total Protein 5.7 g/dl (6.4-8.2) L D 10/18/16 05:52 Albumin 2.3 g/dl (3.4-5.0) L D 10/18/16 05:52 CARDIAC ENZYMES Creatine Kinase 54 IU/L (26-192) 10/16/16 14:20 Troponin I < 0.02 ng/ml (0.00-0.05) 10/16/16 14:20 Current Medications Generic Name Dose Route Start Last Admin Trade Name Freq PRN Reason Stop Dose Admin Acetaminophen 650 mg 10/20/16 03:30 10/20/16 03:38 Tylenol - PO 650 mg Q6H PRN Administration FEVER OR PAIN Acetaminophen/Butalbital/Caffeine 1 tablet 10/16/16 18:37 10/19/16 21:35 Fioricet - PO 1 tablet Q6H PRN Administration HEADACHE Aspirin 81 mg 10/17/16 10:00 10/19/16 10:37 Ecotrin - PO 81 mg DAILY KENNETH Administration Atorvastatin Calcium 20 mg 10/16/16 22:00 10/19/16 21:35 Lipitor - PO 20 mg HS KENNETH Administration Ceftriaxone Sodium 2 gm 10/16/16 18:00 10/19/16 18:54 Rocephin 2gm Ivpb (Pre-Docked) IVPB 2 gm Q24H KENNETH Administration Heparin Sodium (Porcine) 5,000 unit 10/16/16 22:00 10/20/16 05:06 Heparin - SQ Not Given TID KENNETH Lisinopril 10 mg 10/18/16 16:15 10/19/16 10:37 Prinivil PO 10 mg DAILY KENNETH Administration Metoprolol Tartrate 25 mg 10/16/16 22:00 10/19/16 21:35 Lopressor - PO 25 mg BID KENNETH Administration Medication Instructions Recorded Lisinopril [Prinivil] 10 mg PO DAILY 10/13/15 Atorvastatin Ca [Lipitor] 20 mg PO HS 07/01/16 Metoprolol Tartrate [Lopressor -] 25 mg PO DAILY 07/01/16 Aspirin Coated [Ecotrin -] 81 mg PO DAILY 10/17/16 Microbiology 10/19/16 20:25 Nasopharyngeal Swab Influenza Types A,B Antigen (RADHA) - Final 10/19/16 20:25 Nasopharyngeal Swab - Final 10/16/16 18:55 Blood - Peripheral Venous Blood Culture - Preliminary NO GROWTH OBTAINED AFTER 72 HOURS, INCUBATION TO CONTINUE FOR 2 DAYS. 10/16/16 18:10 Blood - Peripheral Venous Blood Culture - Preliminary NO GROWTH OBTAINED AFTER 72 HOURS, INCUBATION TO CONTINUE FOR 2 DAYS. 10/16/16 14:59 Urine - Urine Clean Catch Urine Culture - Final NO GROWTH OBTAINED ASSESSMENT AND PLAN: 55 y/o lady with h/o HTN , who presented with fever , chills , N/V she was found to have sepsis due to complicated UTI / R pyelonephritis. 1- Acute complicated UTI with R pyelonephritis with sepsis. had fever last night , but WBC is NL today. I believe her pyelonephritis is improving and the fever might be due to the URI /sinusitis she has ( developed here ) - Cont ceftriaxone day - follow blood cx ( NGTD) - repeat US of kidneys today with no abscess - Urine cx neg , but that will not change out management - Abd doppler, with no renal vein thrombosis - check rapid flu test - monitor cafefully for any further signs that might evolve - if cont to have fever , might broaden Abx ( ? zosyn ) 2- LUIS ANGEL :off IVF . resolved 3- HTN : - COnt LOpressor and lisinopril 4- DVT px : sq heparin. dispo : depends on clinical course . Possible dc tomorrow if no fever x 24 hr
[2016-10-20] MEDS: ASPIRIN COATED 81 MG TABLET.EC PO SCH (10:10)
[2016-10-20] MEDS: LISINOPRIL 10 MG TABLET (FP) PO SCH (10:10)
[2016-10-20] MEDS: METOPROLOL TARTRATE 25 MG TABLET (FP) PO SCH (10:10)
[2016-10-20] MEDS: ACETAMINOPHEN/CAFFEINE/BUTALBITAL 1 TAB PO PRN (10:12)
--- NOTE | 2016-10-20 13:16 | DS ---
Physical Exam: SUBJECTIVE: Patient seen and examined OBJECTIVE: Vital Signs Period Temp Pulse Resp BP Sys/Avila Pulse Ox Last 24 Hr 97.8 F-99.6 F 65-80 18-18 129-138/77-86 100-100 PHYSICAL EXAM GENERAL: The patient is awake, alert, and fully oriented, in no acute distress. HEAD: Normal with no signs of trauma. EYES: PERRL, extraocular movements intact, sclera anicteric, conjunctiva clear. ENT: Ears normal, nares patent, oropharynx with mild erythema, moist mucous membranes. no LAD. mild tenderness over left maxillary sinus. NECK: Trachea midline, full range of motion, supple. LUNGS: Breath sounds equal, clear to auscultation bilaterally, no wheezes, no crackles, no accessory muscle use. HEART: Regular rate and rhythm, S1, S2 without murmur, rub or gallop. ABDOMEN: Soft, mild tenderness in right lateral abdomen, nondistended, normoactive bowel sounds, no guarding, no rebound, no hepatosplenomegaly, no masses. no CVA tenderness b/l EXTREMITIES: 2+ pulses, warm, well-perfused, no edema. NEUROLOGICAL: Normal speech. PSYCH: Normal mood, normal affect. SKIN: Warm, dry, normal turgor, no rashes or lesions noted. LABS Microbiology 10/19/16 20:25 Nasopharyngeal Swab Influenza Types A,B Antigen (RADHA) - Final - NEGATIVE 10/16/16 14:59 Urine - Urine Clean Catch Urine Culture - Final NO GROWTH OBTAINED 10/19/16 20:25 Nasopharyngeal Swab Respiratory Virus Panel - Preliminary PENDING RESULTS 10/16/16 18:55 Blood - Peripheral Venous Blood Culture NO GROWTH OBTAINED AFTER 72 HOURS, INCUBATION TO CONTINUE FOR 2 DAYS. 10/16/16 18:10 Blood - Peripheral Venous Blood Culture - NO GROWTH OBTAINED AFTER 72 HOURS, INCUBATION TO CONTINUE FOR 2 DAYS. Laboratory Tests 10/16/16 10/16/16 10/16/16 14:20 14:20 14:20 WBC 22.9 H D Hgb 13.7 Hct 40.3 Plt Count 160 D Sodium Potassium Chloride Carbon Dioxide BUN Creatinine 1.3 H D Lactic Acid Ur Specific [place] 1.016 Urine Glucose (UA) Negative Urine Ketones Negative Urine Blood 3+ H Urine Nitrite Positive Urine Bilirubin Negative Urine Urobilinogen Negative Ur Leukocyte Esterase 3+ H Urine RBC 11 Urine WBC 496 Ur Epithelial Cells Rare Urine Bacteria Many Urine Mucus Rare 10/16/16 10/17/16 10/17/16 14:59 06:00 06:00 WBC 17.0 H Hgb 11.7 D Hct 34.5 Plt Count 119 L D Sodium Potassium Chloride Carbon Dioxide BUN Creatinine 1.0 D Lactic Acid 1.962 10/18/16 10/18/16 10/19/16 05:52 05:52 08:20 WBC 10.2 H D 7.4 Hgb 10.7 11.6 Hct 31.6 L 33.5 Plt Count 124 L 162 D Sodium 141 Potassium 3.5 Chloride 110 H Carbon Dioxide 22 BUN 9 D Creatinine 0.7 D IMAGING: Abd/pelvis CT without contrast: No CT evidence of urolithiasis or obstructive uropathy. Minimal to mild right perirenal soft tissue stranding is seen which may be chronic or acute in nature. Correlate clinically in regards to possible acute etiologies such as pyelonephritis or renal vein thrombosis. If clinically indicated additional imaging evaluation utilizing contrast enhanced CT may be performed. Atherosclerotic aortic wall calcifications are noted which appear to be more prominent than would be expected for the patient's chronologic age. Correlate with clinical risk factors. Marked bilateral L4-L5 degenerative facet arthropathy with associated mild L4-L5 degenerative spondylolisthesis. Renal ultrasound (on admission): The main renal veins appear patent bilaterally. The kidneys demonstrate no definite sonographic abnormality. Minimal to mild right perirenal nonspecific soft tissue stranding identified on a noncontrast CT study of 10/16/2016 cannot be appreciated on sonography. Chest xray: Impression: No acute pathology. No change of an adverse nature since 07/01/2016. Renal ultrasound (repeat sent to r/o abscess): The kidneys are normal in size with the right kidney measuring 11.5 x 6.4 x 5.0 cm and the left kidney measuring 11.0 x 5.4 x 6.6 cm. Small cysts are identified within the left kidney with the largest measuring 1.8 x 1.7 x 1.6 cm. The texture of the kidneys is somewhat echogenic which could be related to medical renal disease. Clinical correlation is advised. There is no evidence of hydronephrosis or contour deforming renal masses. IMPRESSION: Mildly echogenic kidneys suspicious for medical renal disease. There is no evidence of hydronephrosis or acute pathology. HOSPITAL COURSE: Date of Admission:10/16/16 - Date of Discharge: 10/20/16 55 year old woman with CAD, hx of DC, chronic back pain presented with fever, chills, maliase and right sided abdominal pain for 3 days. She was found to be septic with white count of 22.9, fever of 103F, HR of 134, elevated creatinine 1.5. CT abdomen showed perirenal fat stranding, differentials included pyelonephritis vs renal vein thrombosis. Ultrasound showed patent vessels, given clinical picture she was admitted for pyelonephritis. She was treated with rocehin 2gm daily IV (10/16-10/20). Her lisinopril was held on admission but continued once her creatinine improved. She had a fever the second and third night of hospital stay. She also complained of URI symptoms with rhinorrhea, tenderness over her left maxillary sinus and cough. Renal ultrasound was negative for abscess formation and the fever spikes were attributed to her URI symptoms. Her white count normalized, her creatinine function improved, she was afebril for 24 hours and she was stable to continue oral antibiotics for 5 more days as out patient. Her urine and blood cultures were negative for growth, rapid nasopharyngeal swab was negative for influenza A and B. She was discharged with ceftin 500mg BID for 5 days 10/21-2-6. Recommended follow-ups - Dr. Frank, pcp for follow-up regarding resolution of symptoms and ultrasound findings of the renal ultrasound and final results of RSV. Minutes to complete discharge: 40 Discharge Summary Reason For Visit: RIGHT SIDE ABDOMINAL PAIN,HEADACHE Current Active Problems Pyelonephritis (Acute) Right sided abdominal pain (Acute) CAD (coronary artery disease) (Chronic) HLD (hyperlipidemia) (Chronic) Condition: Improved - Instructions Diet, Activity, Other Instructions: Take ceftin 500mg 1 tablet twice daily for 5 days to complete a 10-day course of antibiotics. Take Bacid 1 tablet per day for 2 weeks. Follow-up with Dr. Frank in one week.Resume your home medications. If you notice blood in your urine, develop chest pain, or any new symptoms, return to the hospital. Referrals: Rodney Frank [Primary Care Provider] - 1 Week Disposition: HOME - Home Medications Comprehensive Discharge Medication List: Ambulatory Orders Lisinopril [Prinivil] 10 mg PO DAILY 10/13/15 Atorvastatin Ca [Lipitor] 20 mg PO HS 07/01/16 Metoprolol Tartrate [Lopressor -] 25 mg PO DAILY 07/01/16 Aspirin Coated [Ecotrin -] 81 mg PO DAILY 10/17/16 This patient is new to me today: No Emergency Visit: No Critical Care patient: No - Discharge Referral Referred to [facility] Med P.C[facility] No
[2016-10-20] MEDS ORDERED: cefTRIAXone 2 GM/100 ML BAG (PRE-DOCKED) IVPB ONE (13:45)
[2016-10-20 14:16] VITALS: BP 130/74; PULSE 63; TEMP 97.6
== END 2016-10-20 18:08 | disposition home or self-care (01) | DRG 872 ==
LOC: JER 13:16 → JERBED 16:43 → J7W 17:25
PROVIDERS: ADMIT Internal Medicine; ATTEND Internal Medicine
DX: A41.9 Sepsis, unspecified organism (principal); N17.9 Acute kidney failure, unspecified; N10 Acute pyelonephritis; I10 Essential (primary) hypertension; I25.10 Atherosclerotic heart disease of native coronary artery without angina pectoris; E78.5 Hyperlipidemia, unspecified; G43.909 Migraine, unspecified, not intractable, without status migrainosus; I25.2 Old myocardial infarction; F17.210 Nicotine dependence, cigarettes, uncomplicated
CPT/HCPCS: 36415; 71020-TC; 74176-TC; 76775-TC; 80048; 80053; 80076; 81003; 81015; 82550; 83605; 83690; 84484; 85025; 87040; 87086; 87254; 87804; 93005; 93010; 93975; 99285-25; J1644

== ENCOUNTER 2017-01-17 21:45 | Emergency (ER) | payer MEDICARE, OTHER ==
[2017-01-17 21:52] VITALS: BMI 24.2
--- NOTE | 2017-01-17 23:38 | PDOC ---
History of Present Illness - General History Source: Patient <Domingo Meyer - Last Filed: 01/17/17 23:44> - History of Present Illness Initial Comments: 01/17/17 23:46 The patient is a 56 year old female, with a significant past medical history of hypertension, CAD, hyperlipidemia, migraines and bilateral knee arthritis ( taking ibuprofen and gabapentin), who presents to the emergency department with increased pain to her bilateral knees today. She reports her knee pain feel like her usual pain experienced with her arthritis, however, she states she ran out of pain medication. She denies any recent trauma. She denies swelling to her knees or radiation of pain. She denies numbness or tingling. She denies chest pain, shortness of breath, headache and dizziness. She denies fever, chills, nausea, vomit, diarrhea and constipation. She denies dysuria, frequency, urgency and hematuria. Allergies: ciprofloxacin HCl and Zinc PCP - Dr. Frank <Nieves Beltrán - Last Filed: 01/17/17 23:48> - General Chief Complaint: Chronic pain Stated Complaint: KNEE AND HIP PAIN Time Seen by Provider: 01/17/17 23:32 Past History - Past Medical History Anemia: No Asthma: Yes Cancer: No Cardiac Disorders: Yes (CAD s/p cath ) CVA: No COPD: No CHF: No DVT: No Dementia: No Diabetes: No Dialysis: No GI Disorders: No Disorders: No HTN: Yes Hypercholesterolemia: Yes Liver Disease: No Suicide Attempt (Hx): No Seizures: No Thyroid Disease: No - Surgical History Abdominal Surgery: No Appendectomy: Yes Cardiac Surgery: Yes (Cardiac cath) Cholecystectomy: No Lung Surgery: No Neurologic Surgery: No Orthopedic Surgery: No - Immunization History Immunization Up to Date: Yes - Psycho/Social/Smoking Cessation Hx Anxiety: No Suicidal Ideation: No Smoking Status: Yes Smoking History: Former smoker Years of Tobacco Use: 30 Have you smoked in the past 12 months: Yes Number of Cigarettes Smoked Daily: 10 Cigars Per Day: 0 Information on smoking cessation initiated: No 'Breaking Loose' booklet given: 11/13/15 Hx Alcohol Use: No Drug/Substance Use Hx: No Substance Use Type: None Hx Substance Use Treatment: No <Domingo Meyer - Last Filed: 01/17/17 23:44> <Nieves Beltrán - Last Filed: 01/17/17 23:48> - Past Medical History Allergies/Adverse Reactions: Allergies Allergy/AdvReac Type Severity Reaction Status Date / Time ciprofloxacin HCl Allergy Severe Swelling Verified 01/17/17 21:50 [From Cipro] zinc [Zinc] Allergy Mild Rash Verified 01/17/17 21:50 Home Medications: Ambulatory Orders Lisinopril [Prinivil] 10 mg PO DAILY 10/13/15 Atorvastatin Ca [Lipitor] 20 mg PO HS 07/01/16 Metoprolol Tartrate [Lopressor -] 25 mg PO DAILY 07/01/16 Aspirin Coated [Ecotrin -] 81 mg PO DAILY 10/17/16 Cefuroxime Axetil [Ceftin -] 500 mg PO Q12H #10 tablet 10/20/16 Lisinopril [Prinivil] 10 mg PO DAILY tablet 10/20/16 Metoprolol Tartrate [Lopressor -] 25 mg PO BID tablet 10/20/16 Ibuprofen 800 mg PO TID #30 tablet 01/17/17 Methocarbamol [Robaxin -] 500 mg PO TID #30 tablet 01/17/17 Oxycodone HCl/Acetaminophen [Percocet 5-325 mg Tablet] 1 - 2 tab PO Q6H #10 tablet MDD 4 01/17/17 Review of Systems - Review of Systems Able to Perform ROS?: Yes Comments:: 01/17/17 23:46 CONSTITUTIONAL: Absent: fever, no chills, no fatigue EYES: Absent: visual changes ENT: Absent: ear pain, no sore throat CARDIOVASCULAR: Absent: chest pain, no palpitations RESPIRATORY: Absent: cough, no SOB GI: Absent: abdominal pain, no nausea, no vomiting, no constipation, no diarrhea GENITOURINARY: Absent: dysuria, no frequency, no hematuria MUSCULOSKELETAL: (+) bilateral knee pain. Absent: back pain, no myalgia SKIN: Absent: rash NEURO: Absent: headache <Nieves Beltrán - Last Filed: 01/17/17 23:48> *Physical Exam - Vital Signs Last Vital Signs Temp Pulse Resp BP Pulse Ox 97.5 F L 87 20 124/79 98 01/17/17 21:50 01/17/17 21:50 01/17/17 21:50 01/17/17 21:50 01/17/17 21:50 <Sinisterra,Domingo - Last Filed: 01/17/17 23:44> - Vital Signs Last Vital Signs Temp Pulse Resp BP Pulse Ox 97.5 F L 87 20 124/79 98 01/17/17 21:50 01/17/17 21:50 01/17/17 21:50 01/17/17 21:50 01/17/17 21:50 - Physical Exam Comments: 01/17/17 23:47 GENERAL: Well-appearing, well-nourished. No apparent distress. HEENT: Normocephalic, atraumatic. PERRL, EOM intact. CARDIOVASCULAR: Normal S1, S2. Regular rate and rhythm. PULMONARY: Clear to auscultation bilaterally. ABDOMEN: Soft, non-distended, non-tender. EXTREMITIES: Normal ROM in all four extremities. No gross deformities. SKIN: Warm, dry. No rash NEUROLOGICAL: No focal neurological deficits. <Nieves Beltrán - Last Filed: 01/17/17 23:48> Medical Decision Making - Medical Decision Making 01/17/17 23:45 Dr. Meyer: The scribe's documentation has been prepared under my direction and personally reviewed by me in its entirery. I confirm that the note above accurately reflects all work, treatment, procedures, and medical decision making performed by me. <Domingo Meyer - Last Filed: 01/17/17 23:44> *DC/Admit/Observation/Transfer - Discharge Dispostion Admit: No <Domingo Meyer - Last Filed: 01/17/17 23:44> - Attestations Scribe Attestion: 01/17/17 23:47 Documentation prepared by Nieves Beltrán, acting as medical center representative for Domingo Meyer DO <Nieves Beltrán - Last Filed: 01/17/17 23:48> Diagnosis at time of Disposition: Musculoskeletal pain Knee pain, chronic Qualifiers: Laterality: bilateral Qualified Code(s): M25.561 - Pain in right knee - Discharge Dispostion Disposition: HOME - Prescriptions Prescriptions: Ibuprofen 800 mg PO TID #30 tablet Oxycodone HCl/Acetaminophen [Percocet 5-325 mg Tablet] 1 - 2 tab PO Q6H #10 tablet MDD 4 Methocarbamol [Robaxin -] 500 mg PO TID #30 tablet - Referrals Referrals: Rodney Frank [Primary Care Provider] - - Patient Instructions Printed Discharge Instructions: DI for Chronic Pain -- Adult, DI for Knee Pain
[2017-01-17] MEDS ORDERED: IBUPROFEN 400 MG TABLET (FP) PO ONE (23:39)
[2017-01-17] MEDS ORDERED: METHOCARBAMOL 500 MG TABLET PO ONE (23:39)
[2017-01-18 05:36] VITALS: BP 126/80; PULSE 84; TEMP 98
== END 2017-01-18 | disposition home or self-care (01) ==
LOC: JER 21:45 → JERFT 21:45 → JER 01-18
DX: M25.561 Pain in right knee (principal); M25.562 Pain in left knee; I10 Essential (primary) hypertension; Z98.61 Coronary angioplasty status; E78.00 Pure hypercholesterolemia, unspecified; G43.909 Migraine, unspecified, not intractable, without status migrainosus; M13.862 Other specified arthritis, left knee; M13.861 Other specified arthritis, right knee
CPT/HCPCS: 99282-25

== ENCOUNTER 2017-02-13 19:26 | Emergency (ER) | payer MEDICARE, OTHER ==
[2017-02-13 19:32] VITALS: BP 150/72; PULSE 88; TEMP 97.6; BMI 24.2
[2017-02-13] MEDS ORDERED: IBUPROFEN 400 MG TABLET (FP) PO ONE ×2 (19:45→19:48)
--- NOTE | 2017-02-13 19:54 | PDOC ---
History of Present Illness - General Chief Complaint: Pain Stated Complaint: WRIST PAIN Time Seen by Provider: 02/13/17 19:37 History Source: Patient - History of Present Illness Occurred: reports: yesterday Upper Extremity Pain Location: right: wrist Past History - Past Medical History Allergies/Adverse Reactions: Allergies Allergy/AdvReac Type Severity Reaction Status Date / Time ciprofloxacin HCl Allergy Severe Swelling Verified 02/13/17 19:32 [From Cipro] zinc [Zinc] Allergy Mild Rash Verified 02/13/17 19:32 Home Medications: Ambulatory Orders Arm Brace [Wrist Brace] 1 each MC ASDIR #1 each 02/13/17 Atorvastatin Ca [Lipitor] 20 mg PO HS 02/13/17 Ibuprofen [Motrin -] 800 mg PO Q6H #30 tablet 02/13/17 Lisinopril 5 mg PO DAILY 02/13/17 Metoprolol Succinate [Toprol Xl -] 25 mg PO DAILY 02/13/17 Anemia: No Asthma: Yes Cancer: No Cardiac Disorders: Yes (CAD s/p cath ) CVA: No COPD: No CHF: No DVT: No Dementia: No Diabetes: No Dialysis: No GI Disorders: No Disorders: No HTN: Yes Hypercholesterolemia: Yes Liver Disease: No Suicide Attempt (Hx): No Seizures: No Thyroid Disease: No - Surgical History Abdominal Surgery: No Appendectomy: Yes Cardiac Surgery: Yes (Cardiac cath) Cholecystectomy: No Lung Surgery: No Neurologic Surgery: No Orthopedic Surgery: No - Immunization History Immunization Up to Date: Yes - Psycho/Social/Smoking Cessation Hx Anxiety: No Suicidal Ideation: No Smoking Status: Yes Smoking History: Current every day smoker Years of Tobacco Use: 30 Have you smoked in the past 12 months: Yes Number of Cigarettes Smoked Daily: 10 Cigars Per Day: 0 Information on smoking cessation initiated: No 'Breaking Loose' booklet given: 11/13/15 Hx Alcohol Use: No Drug/Substance Use Hx: No Substance Use Type: None Hx Substance Use Treatment: No Review of Systems - Review of Systems Constitutional: No: Chills, Fever Musculoskeletal: Yes: Joint Pain, Joint Swelling *Physical Exam - Vital Signs Last Vital Signs Temp Pulse Resp BP Pulse Ox 97.6 F 88 18 150/72 98 02/13/17 19:28 02/13/17 19:28 02/13/17 19:28 02/13/17 19:28 02/13/17 19:28 - Physical Exam General Appearance: Yes: Appropriately Dressed. No: Apparent Distress HEENT: positive: Normal Voice Respiratory/Chest: negative: Respiratory Distress Extremity: positive: Other (~1cm firm, smooth, rounded, rubbery, tender mass to volar aspect of radial aspect of L wrist c/w ganglia, opain worse w/ flexion of thumb but FROMI, similar swelling, though significantly smaller to same location to R wrist) Integumentary: positive: Dry, Warm Neurologic: positive: Fully Oriented, Alert, Normal Mood/Affect Medical Decision Making - Medical Decision Making 02/13/17 19:55 56 yo F, h/o ganglionic cyst that resolved w/ wrist brace in the past, p/w painful swelling to radial aspect of L wrist that she noticed yesterday, similar to cyst in the past.. Also has similar swelling, though not as severe, to same location on R wrist. No recent trauma. No f/c See exam B/l ganglionic cyst, L>>R -pain control -brace -hand f/u for possible aspiration if cyst does not spontaneously resolve with above measures 02/13/17 20:12 *DC/Admit/Observation/Transfer Diagnosis at time of Disposition: Ganglion and cyst of synovium, tendon and bursa - Discharge Dispostion Disposition: HOME Condition at time of disposition: Good - Prescriptions Prescriptions: Ibuprofen [Motrin -] 800 mg PO Q6H #30 tablet Arm Brace [Wrist Brace] 1 each ASDIR #1 each - Referrals Referrals: Toni Epstein [Primary Care Provider] - Alexey Lopez MD [Staff Physician] - - Patient Instructions Printed Discharge Instructions: Ganglion Cyst Additional Instructions: Use brace for comfort and follow up with Dr Lopez of plastics in 1 week
== END 2017-02-13 20:04 | disposition home or self-care (01) ==
LOC: JERFT 19:26
DX: M67.432 Ganglion, left wrist (principal); I25.10 Atherosclerotic heart disease of native coronary artery without angina pectoris; I10 Essential (primary) hypertension; Z95.5 Presence of coronary angioplasty implant and graft; E78.00 Pure hypercholesterolemia, unspecified; F17.210 Nicotine dependence, cigarettes, uncomplicated
CPT/HCPCS: 99281-25

== ENCOUNTER 2018-09-14 20:04 | Emergency (ER) | payer OTHER ==
--- NOTE | 2018-09-14 20:13 | PDOC ---
History of Present Illness - General History Source: Patient Exam Limitations: No Limitations - History of Present Illness Initial Comments: 09/14/18 20:37 A portion of this note was documented by scribe services under my direction. I have reviewed the details of the note, within reason, and agree with the documentation with the following case summary and management plan written by me. Patient treated in the ED. Nursing notes are reviewed and incorporated into the medical decision-making. Vital signs reviewed. Assessment plan: This is a 57-year-old female who has history of injury to her right knee area and approximately one month of pain. Patient recently traveled on a bus to this area from [place]. Patient after getting out of the bus had increased discomfort in her knee but did not take anything for the pain. Patient will be going back to [place] next week. We'll give her an anti-inflammatory and recommended that she call her doctor in [place] and get an appointment to follow-up with her orthopedist as soon as possible when she gets back and she will likely need an MRI an additional imaging. She had already seen the orthopedist once and was told it was a torn meniscus. <Noel Mathis I - Last Filed: 09/14/18 20:36> - General History Source: Patient Exam Limitations: No Limitations - History of Present Illness Initial Comments: 09/14/18 20:56 The patient is a 57 year old female, with a significant PMH asthma , CAD s/p catheter, HTN, and HLD who presents to the emergency department with right knee pain that began a couple of months ago. The patient states she was on a bus from [place] today and mentioned she hit her knee on something. The patient states pain is exacerbated when laying down and walking, no alleviating factors. The patient also notes a popping sound when bending leg. The patient states her orthopedist in [place] told her she tore meniscus but states it will take 1 month to set a date for surgery. The patient states she will follow up with her orthopedist when she gets back. The patient denies numbness or tingling. Denies chest pain, shortness of breath, headache and dizziness. Denies fever, chills, nausea, vomit, diarrhea and constipation.Denies dysuria, frequency, urgency and hematuria. PAST MEDICAL HISTORY: Asthma, CAD, HTN HLD PAST SURGICAL HISTORY: appendectomy, cardiac catheter FAMILY HISTORY: no pertinent history SOCIAL HISTORY: Patient is a current everyday smoker (8 cigarettes daily) but denies alcohol and recreational drug use. MEDICATIONS: reviewed ALLERGIES: As per nursing notes Adult ROS General: No fevers or chills, no weakness, no weight loss HEENT: No change in vision. No sore throat,. No ear pain CardioVascular: No chest pain or shortness of breath Respiratory:No cough, or wheezing. Gastrointestinal: no nausea, vomiting, diarrhea or constipation, No rectal bleeding Genitourinary: No dysuria, hematuria, or frequency Musculoskeletal: +Right knee pain Neurologic: No headache, vertigo, dizziness or loss of consciousness Psychiatric: nor depression Skin: No rashes or easy bruising Endocrine: no increased thirst or abnormal weight change Allergic: no skin or latex allergy All other systems reviewed and normal Basic PE GENERAL: The patient is awake, alert, and fully oriented, in no acute distress. HEAD: Normal with no signs of trauma. EYES: Pupils equal, round and reactive to light, extraocular movements intact, sclera anicteric, conjunctiva clear. EXTREMITIES:+Right knee mild swelling medially and superiorly with tenderness on palpation medially and superiorly. No crepitus. No palpable effusion. Ligamentous stress test medially positive for pain. Neurovascular intact. No calf tenderness, swelling on palpation NEUROLOGICAL: Normal speech, normal gait. PSYCH: Normal mood, normal affect. SKIN: Warm, Dry, normal turgor, no rashes or lesions noted. <Bola Macias - Last Filed: 09/14/18 21:16> - General Chief Complaint: Pain Stated Complaint: RIGHT KNEE PAIN Time Seen by Provider: 09/14/18 20:08 Past History - Past Medical History Anemia: No Asthma: Yes Cancer: No Cardiac Disorders: Yes (CAD s/p cath ) CVA: No COPD: No CHF: No DVT: No Dementia: No Diabetes: No Dialysis: No GI Disorders: No Disorders: No HTN: Yes Hypercholesterolemia: Yes Liver Disease: No Seizures: No Thyroid Disease: No - Surgical History Abdominal Surgery: No Appendectomy: Yes Cardiac Surgery: Yes (Cardiac cath) Cholecystectomy: No Lung Surgery: No Neurologic Surgery: No Orthopedic Surgery: No - Immunization History Immunization Up to Date: Yes - Suicide/Smoking/Psychosocial Hx Smoking Status: Yes Smoking History: Current every day smoker Years of Tobacco Use: 30 Have you smoked in the past 12 months: Yes Number of Cigarettes Smoked Daily: 8 Cigars Per Day: 0 'Breaking Loose' booklet given: 11/13/15 Hx Alcohol Use: No Drug/Substance Use Hx: No Substance Use Type: None Hx Substance Use Treatment: No <Noel Mathis I - Last Filed: 09/14/18 20:36> <Bola Macias - Last Filed: 09/14/18 21:16> - Past Medical History Allergies/Adverse Reactions: Allergies Allergy/AdvReac Type Severity Reaction Status Date / Time ciprofloxacin HCl Allergy Severe Swelling Verified 09/14/18 20:15 [From Cipro] zinc [Zinc] Allergy Mild Rash Verified 09/14/18 20:15 Home Medications: Ambulatory Orders Atorvastatin Ca [Lipitor] 20 mg PO DAILY 02/13/17 Metoprolol Succinate [Toprol Xl -] 25 mg PO DAILY 02/13/17 Aspirin 81 mg PO DAILY 03/22/18 Lisinopril/Hydrochlorothiazide [Lisinopril-Hctz 10-12.5 mg Tab] 1 each PO DAILY 03/22/18 Albuterol Sulfate Inhaler - [Ventolin HFA Inhaler -] 1 - 2 inh PO Q4H PRN #1 inhaler 03/23/18 Potassium Chloride [K-Dur -] 20 meq PO DAILY 09/14/18 *Physical Exam - Vital Signs Last Vital Signs Temp Pulse Resp BP Pulse Ox 97.6 F 83 18 134/80 100 09/14/18 20:06 09/14/18 20:06 09/14/18 20:06 09/14/18 20:06 09/14/18 20:06 <Bola Macias - Last Filed: 09/14/18 21:16> Moderate Sedation - Procedure Monitoring Vital Signs: Procedure Monitoring Vital Signs Temperature 97.6 F 09/14/18 20:06 Pulse Rate 83 09/14/18 20:06 Respiratory Rate 18 09/14/18 20:06 Blood Pressure 134/80 09/14/18 20:06 O2 Sat by Pulse Oximetry (%) 100 09/14/18 20:06 <Bola Macias - Last Filed: 09/14/18 21:16> *DC/Admit/Observation/Transfer - Discharge Dispostion Decision to Admit order: No <Noel Mathis I - Last Filed: 09/14/18 20:36> - Attestations Scribe Attestion: 09/14/18 20:56 Documentation prepared by Bola Macias, acting as phlebotomist medical lab assistant for Noel Mathis MD. <Bola Macias - Last Filed: 09/14/18 21:16> Diagnosis at time of Disposition: Right medial knee pain - Discharge Dispostion Disposition: HOME Condition at time of disposition: Good - Patient Instructions Additional Instructions: Purchase [id number] Naprosyn also called Aleve and take 2 tablets twice a day with food. In addition to the Naprosyn you can also take Tylenol in between 2 tablets as often as every 4-6 hours if needed. Call your orthopedist in the morning and get an appointment for as soon as they have an available as she will need additional follow-up and probably an MRI. Return to the emergency department immediately with ANY new, persistent or worsening symptoms. Continue any medications as previously prescribed by your physician. You should follow up with your primary doctor as soon as possible regarding today's emergency department visit. . Please make sure your doctor reviews the results of your emergency evaluation. Thank you for coming to the Emergency Department today for your care. It was a pleasure to see you today. Please note that your evaluation is INCOMPLETE until you follow-up with your doctor.
[2018-09-14 20:20] VITALS: BP 134/80; PULSE 83; TEMP 97.6; BMI 22.6
[2018-09-14] MEDS ORDERED: KETOROLAC TROMETHAMINE 60 MG/2 ML VIAL IM ONE (20:36)
[2018-09-14] MEDS ORDERED: KETOROLAC TROMETHAMINE 60 MG/2 ML VIAL ONE (20:55)
== END 2018-09-14 21:04 | disposition home or self-care (01) ==
LOC: FER 20:04
PROC: 3E0233Z Introduction of Anti-inflammatory into Muscle, Percutaneous Approach (ICD-10-PCS; principal; 2018-09-14)
DX: M25.561 Pain in right knee (principal); I10 Essential (primary) hypertension; I25.10 Atherosclerotic heart disease of native coronary artery without angina pectoris; E78.5 Hyperlipidemia, unspecified; J45.909 Unspecified asthma, uncomplicated; F17.210 Nicotine dependence, cigarettes, uncomplicated; Z98.61 Coronary angioplasty status; Z88.1 Allergy status to other antibiotic agents; Z79.82 Long term (current) use of aspirin
CPT/HCPCS: 99282-25